=== PATIENT | female | born 1995 | race Caucasian/White ===

== ENCOUNTER 2017-07-19 14:36 | Emergency (ER) | payer OTHER ==
[2017-07-19 15:35] VITALS: BMI 28.0
[2017-07-19] MEDS ORDERED: Sodium Chloride 0.9% 500 ML IV STA (15:42)
--- NOTE | 2017-07-19 15:44 | ED PDOC ---
Arrival/HPI - General Historian: Patient - History of Present Illness Time/Duration: 24 hours Symptom Onset: Sudden Symptom Course: Worsening Quality: Stabbing Severity Level: 6 Activities at Onset: Light Context: Standing - General Chief Complaint: Groin Pain Time Seen by Provider: 07/19/17 14:44 - History of Present Illness Narrative History of Present Illness (Text): 07/19/17 16:14 This is a 22Y F with PMH hyperthyroidism and migraines came to the Emergency department for RLQ abdominal pain x 2 days. She reports it is a intermittent stabbing pain that radiates to her thigh and to the L side of her abdomen. The patient does complain of numbness in her R anterior thigh. She has never had this symptom before and does wear tight leggings on a daily basis. She denies chest pain, shortness of breath, n/v/d, fever or chills, dysuria or hematuria. Her LMP was 3 weeks ago. Her periods are regular and is not sexually active. (Charity Vitale) Past Medical History - Provider Review Nursing Documentation Reviewed: Yes - Travel History Have you recently traveled outside [place] w/in the past 3 mons?: Yes If Yes, travel location?: [place] - Infectious Disease Hx of Infectious Diseases: None - Neurological Hx Migraine: Yes - Endocrine/Metabolic Hx Hyperthyroidism: Yes - Psychiatric Hx Substance Use: No - Surgical History Hx Tonsillectomy: Yes - Anesthesia Hx Anesthesia: Yes Hx Anesthesia Reactions: No Hx Malignant Hyperthermia: No Family/Social History - Physician Review Nursing Documentation Reviewed: Yes Family/Social History: No Known Family HX Smoking Status: Never Smoked Hx Alcohol Use: No Hx Substance Use: No Allergies/Home Meds Allergies/Adverse Reactions: Allergies No Known Allergies Allergy (Unverified 11/15/16 19:28) Home Medications: Home Meds Medication Instructions Recorded Confirmed methIMAzole [Tapazole] 1 tab PO DAILY 07/19/17 07/19/17 Review of Systems - Physician Review All systems were reviewed & negative as marked: Yes - Review of Systems Constitutional: Normal. absent: Fevers Respiratory: Normal. absent: SOB Cardiovascular: Normal. absent: Chest Pain Gastrointestinal: Normal. absent: Abdominal Pain, Diarrhea, Nausea, Vomiting Genitourinary Female: Normal. absent: Dysuria, Frequency, Vaginal Bleeding, Vaginal Discharge Musculoskeletal: Other. absent: Back Pain, Joint Swelling Skin: Normal. absent: Rash Neurological: Normal. absent: Headache, Dizziness Physical Exam Vital Signs Reviewed: Yes Temperature: Afebrile Blood Pressure: Normal Pulse: Regular Respiratory Rate: Normal Appearance: Positive for: Well-Appearing, Non-Toxic, Comfortable Pain Distress: None Mental Status: Positive for: Alert and Oriented X 3 - Systems Exam Head: Present: Atraumatic, Normocephalic Pupils: Present: PERRL Extroacular Muscles: Present: EOMI Conjunctiva: Present: Normal Mouth: Present: Moist Mucous Membranes Neck: Present: Normal Range of Motion Respiratory/Chest: Present: Clear to Auscultation, Good Air Exchange. No: Respiratory Distress, Accessory Muscle Use Cardiovascular: Present: Regular Rate and Rhythm, Normal S1, S2. No: Murmurs Abdomen: Present: Tenderness, Normal Bowel Sounds, McBurney's Point Tender. No : Distention, Peritoneal Signs, Rebound, Guarding, Hernias Back: Present: Normal Inspection Upper Extremity: Present: Normal Inspection. No: Cyanosis, Edema Lower Extremity: Present: Normal Inspection. No: Edema Neurological: Present: GCS=15, CN II-XII Intact, Speech Normal Skin: Present: Warm, Dry, Normal Color. No: Rashes Psychiatric: Present: Alert, Oriented x 3, Normal Insight, Normal Concentration Medical Decision Making Re-evaluation Time: 16:50 ED Course and Treatment: 07/19/17 16:33 Impression: This is a 22Y F with PMH hyperthyroidism and migraines came to the Emergency department for RLQ abdominal pain x 2 days with associated numbness of her R anterior thigh. Differential Diagnosis included but are not limited to: appendicitis v. UTI v. meralgia paresthetica Plan: -- CBC, CMP, U/A -- Toradol -- NS -- Reassess and disposition Prior Visits: Notes and results from previous visits were reviewed. Progress Notes: 07/19/17 16:36 P atient continue to have numbness in thigh, but pain has improved. U/A positive but most likely contaminated, urine culture was sent. Had long discussion with patient about having a CT abd/pelvis to r/o appendicitis. Family was at bedside at this time. As per patient and family, they would prefer to have a more conservative approach to r/o appendicitis. The signs and symptoms of appendicitis were discussed. I have discussed the results and plan with the patient, who expresses understanding. Patient in agreement with plan to be discharged home. Patient is stable for discharge. Patient was instructed to follow up with physician or return if symptoms worsen or new concerning symptoms arise. (Charity Vitale) Seen and examined with resident. 22 y/o F p/w RLQ pain. RLQ tenderness on exam. (Micky Boswell) - Lab Interpretations Lab Results: 07/19/17 16:30 07/19/17 16:30 Lab Results 07/19/17 16:30: Sodium 139, Potassium 3.9, Chloride 103, Carbon Dioxide 24, Anion Gap 16, BUN 9, Creatinine 0.7, Est GFR ( Amer) > 60, Est GFR (Non- Af Amer) > 60, Random Glucose 88, Calcium 9.4, Total Bilirubin 0.3, AST 24, ALT 26, Alkaline Phosphatase 60, Total Protein 7.7, Albumin 4.6, Globulin 3.1, Albumin/Globulin Ratio 1.5 07/19/17 16:30: WBC 8.8, RBC 4.19, Hgb 11.7 L, Hct 35.7 L, MCV 85.2, MCH 27.9, MCHC 32.8, RDW 13.4, Plt Count 324, MPV 9.4 07/19/17 16:09: Urine Color Yellow, Urine Appearance Sl cloudy, Urine pH 6.0, Ur Specific [place] 1.020, Urine Protein Negative, Urine Glucose (UA) Negative, Urine Ketones Negative, Urine Blood Trace-intact H, Urine Nitrate Negative, Urine Bilirubin Negative, Urine Urobilinogen 0.2, Ur Leukocyte Esterase Large H , Urine RBC 0 - 2, Urine WBC 5 - 10, Ur Epithelial Cells Many, Urine Bacteria Many - Medication Orders Current Medication Orders: Discontinued Medications Sodium Chloride (Sodium Chloride 0.9%) 500 mls @ 999 mls/hr IV .Q31M STA Stop: 07/19/17 16:12 Last Admin: 07/19/17 16:26 Dose: 999 mls/hr Ketorolac Tromethamine (Toradol) 30 mg IVP STAT STA Stop: 07/19/17 15:43 Last Admin: 07/19/17 16:26 Dose: 30 mg Disposition/Present on Arrival - Present on Arrival Any Indicators Present on Arrival: No History of DVT/PE: No History of Uncontrolled Diabetes: No Urinary Catheter: No History of Decub. Ulcer: No History Surgical Site Infection Following: None - Disposition Have Diagnosis and Disposition been Completed?: Yes Disposition Time: 17:17 Patient Plan: Discharge - Disposition Diagnosis: Abdominal pain Disposition: HOME/ ROUTINE Condition: FAIR Print Language: URDU Additional Instructions: Ms. Goldman, thank you for letting us take care of you today. Your provider was Dr. Vitale. You were treated for abdominal pain. The emergency medical care you received today was directed at your acute symptoms. If you were prescribed any medication, please fill it and take as directed. It may take several days for your symptoms to resolve. Return to the Emergency Department if your symptoms worsen, do not improve, or if you have any other problems. Please contact your doctor or call one of the physicians/clinics you have been referred to that are listed on the Patient Visit Information form that is included in your discharge packet. Bring any paperwork you were given at discharge with you along with any medications you are taking to your follow up visit. Our treatment cannot replace ongoing medical care by a primary care provider (PCP) outside of the emergency department. Thank you for allowing the [facility] team to be part of your care today. For your urine culture: It will take several days for the results, if any change in treatment is needed we will contact you. Referrals: [facility] at [facility] [Outside] - Follow up with primary Forms: [employer] (Slovenian)
[2017-07-19 16:23] VITALS: BP 119/68; PULSE 82; RESP 18; TEMP 98.4; O2SAT 100
[2017-07-19 16:23] LABS: URINE BILIRUBIN NEGATIVE (NEGATIVE); URINE BLOOD TRACE-INTACT (NEGATIVE); URINE GLUCOSE (UA) NEGATIVE (NEGATIVE); URINE KETONE NEGATIVE (NEGATIVE); URINE LEUKOCYTE ESTERASE LARGE Leu/uL (NEGATIVE); URINE PROTEIN NEGATIVE mg/dL (<30 mg/dL); URINE UROBILINOGEN 0.2 E.U./dL (<1 E.U./dL)
[2017-07-19 16:24] LABS: URINE APPEARANCE SL CLOUDY (CLEAR); URINE COLOR YELLOW (YELLOW)
[2017-07-19 16:29] LABS: URINE RBC 0 - 2 /hpf (0-2)
[2017-07-19 16:30] LABS: URINE BACTERIA MANY (NEG); URINE EPITHELIAL CELLS MANY /hpf (0-5)
[2017-07-19 16:44] LABS: HEMATOCRIT 35.7 % (36.0-48.0); MEAN CELL VOLUME 85.2 fl (80.0-105.0); MEAN CORPUSCULAR HEMOGLOBIN 27.9 pg (25.0-35.0); MEAN CORPUSCULAR HGB CONC 32.8 g/dl (31.0-37.0); MEAN PLATELET VOLUME 9.4 fl (7.0-11.0); RED CELL DISTRIBUTION WIDTH 13.4 % (11.5-14.5); WHITE BLOOD COUNT 8.8 10^3/ul (4.5-11.0)
[2017-07-19 17:01] LABS: ALB/GLOB RATIO 1.5 (1.1-1.8); ALKALINE PHOSPHATASE 60 U/L (38-126); ALT/SGPT 26 U/L (7-56); AST/SGOT 24 U/L (14-36); BILIRUBIN,TOTAL 0.3 mg/dL (0.2-1.3); BLOOD UREA NITROGEN 9 mg/dL (7-21); CALCIUM 9.4 mg/dL (8.4-10.5); CARBON DIOXIDE 24 mmol/L (21-33); CHLORIDE 103 mmol/L (98-107); GFR AFRICAN-AMERICAN > 60; GLUCOSE,RANDOM 88 mg/dL (70-110); POTASSIUM 3.9 mmol/L (3.6-5.0); SODIUM 139 mmol/L (132-148); TOTAL PROTEIN 7.7 g/dL (5.8-8.3)
== END 2017-07-19 17:40 | disposition home or self-care (01) ==
LOC: ED 14:36
DX: R10.31 Right lower quadrant pain (principal); E05.90 Thyrotoxicosis, unspecified without thyrotoxic crisis or storm
CPT/HCPCS: 80053; 81001; 85027; 87086; 96374; 99285; J1885; J7040

== ENCOUNTER 2017-07-21 13:58 | Emergency (ER) | payer OTHER ==
[2017-07-21 13:59] VITALS: BMI 28.0
[2017-07-21 14:21] VITALS: TEMP 98.7
--- NOTE | 2017-07-21 14:54 | ED PDOC ---
Arrival/HPI - General Historian: Patient, Parent - History of Present Illness Time/Duration: < week Symptom Onset: Sudden Symptom Course: Worsening Quality: Unable to Describe - General Chief Complaint: Abdominal Pain Time Seen by Provider: 07/21/17 13:59 - History of Present Illness Narrative History of Present Illness (Text): 07/21/17 14:49 This is a 22 year old female with PMHx hyperthyroidism and migraines who presents for worsening abdominal pain. Pain is localized to the right lower quadrant and was originally described as a "needle" type pain which has since changed in character. Patient is unable to describe how the pain currently feels but states that it is worsened since prior ER visit. Patient states that her pain originally started on 07/18/17. Pain is constant and without radiation. Pain is not tied to meals, and patient states she still has her normal appetite. 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 Patient denies fevers , chills, chest pain, dyspnea, vomiting, constipation, diarrhea, dysuria. Patient's LMP was 3 weeks prior. (Juventino Smith) Past Medical History - Provider Review Nursing Documentation Reviewed: Yes - Travel History If Yes, travel location?: [place] - Infectious Disease Hx of Infectious Diseases: None - Neurological Hx Migraine: Yes - Endocrine/Metabolic Hx Hyperthyroidism: Yes - Psychiatric Hx Substance Use: No - Surgical History Hx Tonsillectomy: Yes - Anesthesia Hx Anesthesia: Yes Hx Anesthesia Reactions: No Hx Malignant Hyperthermia: No Family/Social History - Physician Review Nursing Documentation Reviewed: Yes Family/Social History: No Known Family HX Smoking Status: Never Smoked Hx Alcohol Use: No Hx Substance Use: No Allergies/Home Meds Allergies/Adverse Reactions: Allergies ibuprofen [From Advil] Adverse Reaction (Verified 07/21/17 14:21) SWELLING Home Medications: Home Meds Medication Instructions Recorded Confirmed methIMAzole [Tapazole] 1 tab PO DAILY 07/19/17 07/21/17 Review of Systems - Review of Systems Constitutional: Normal. absent: Fevers Eyes: Normal ENT: Normal Respiratory: Normal. absent: SOB Cardiovascular: Normal. absent: Chest Pain Gastrointestinal: Abdominal Pain (Right lower quadrant without radiation), Nausea. absent: Constipation, Diarrhea, Vomiting Genitourinary Female: Normal. absent: Dysuria Musculoskeletal: Normal Skin: Normal Neurological: Normal Endocrine: Normal Hemo/Lymphatic: Normal Psychiatric: Normal Physical Exam Vital Signs Reviewed: Yes Temperature: Afebrile Blood Pressure: Normal Pulse: Tachycardic Respiratory Rate: Normal Appearance: Positive for: Well-Appearing Pain Distress: Moderate Mental Status: Positive for: Alert and Oriented X 3 - Systems Exam Head: Present: Atraumatic, Normocephalic Pupils: Present: PERRL Extroacular Muscles: Present: EOMI Conjunctiva: Present: Normal Mouth: Present: Moist Mucous Membranes Neck: Present: Normal Range of Motion Respiratory/Chest: Present: Clear to Auscultation, Good Air Exchange. No: Accessory Muscle Use Cardiovascular: Present: Regular Rate and Rhythm, Normal S1, S2 Abdomen: Present: Tenderness (RLQ tenderness), Normal Bowel Sounds, McBurney's Point Tender. No: Distention, Rovsing's Sign Present Upper Extremity: Present: Normal Inspection, NORMAL PULSES. No: Edema Lower Extremity: Present: Normal Inspection, NORMAL PULSES. No: Edema, CALF TENDERNESS Neurological: Present: GCS=15, CN II-XII Intact Skin: Present: Warm, Dry, Normal Color Psychiatric: Present: Alert, Oriented x 3 Vital Signs Temp Pulse Resp BP Pulse Ox 07/21/17 17:00 89 18 124/79 98 07/21/17 14:16 98.7 F 99 H 19 126/83 99 Medical Decision Making ED Course and Treatment: 07/21/17 17:45 Patient seen and evaluated with clinical laboratory medical director. I evaluated patient and examined patient, and reviewed history and exam with mother and cousin with her permission. She reports 3 day history of right lower abdominal pain. On exam she has focal tenderness to RLQ but no rebound or guarding. Denies diarrhea. Denies loss of appetite. No ruq pain noted. No flank pain noted. No urinary symptoms reported. She has no fever, unremarkable WBC. Based on persistent RLQ pain, I discussed with patient and family indications for CT abdomen/pelvis and reviewed risks/benefits or imaging studies. They are agreeable to CT based on her persistent RLQ pain to evaluate for appendicitis. Patient is not sexually active, refuses pelvic exam or ultrasound as pain mild on re-evaluation. I reviewed with her and family CT reading and on exam she is comfortable, well hydrated. CT reveals constipation, although no appendicitis noted. I reviewed findings with patient and also recommended follow-up with cellophane worker given possible ovarian cysts. Urinalysis reviewed from prior visit, will treat for possible UTI. Risks/side effects of medications reviewed. Patient will be discharged with instructions for follow-up. Family updated. (Tanna,Brad) 07/21/17 15:00 CBC, CMP, Urine , UA, CT abdomen/pelvis w. IV contrast 07/21/17 16:49 CT abdomen/pelvis w. IV contrast FINDINGS: LOWER THORAX: Minor bibasilar atelectasis. No evidence of effusion or basilar pneumothorax. Small hiatal hernia with wall thickening of distal esophagus likely due to protrusion of gastric mucosa. LIVER: Liver is upper limits of normal in size measuring approximately 17.6 cm in CC dimension. No obvious hepatic mass or collection. Portal and splenic veins are opacified. GALLBLADDER AND BILE DUCTS: Gallbladder is incompletely distended which may account for slight thick-walled appearance. Clinical correlation recommended. PANCREAS: Unremarkable. No gross lesion or ductal dilatation. SPLEEN: Unremarkable. ADRENALS: No adrenal lesions. KIDNEYS AND URETERS: Kidneys demonstrate symmetric nephrograms. No evidence of nephrolithiasis or hydronephrosis. VASCULATURE: No evidence of abdominal aortic or iliac artery aneurysm BOWEL: Evaluation of the bowel is somewhat limited due to the lack of oral contrast material. Stomach is distended with food debris liquid and air. Visualized loops of small bowel exhibit relatively normal contour and caliber. No evidence acute mechanical small bowel obstruction. Large amount of stool seen throughout the colon consistent with constipation. APPENDIX: Normal-appearing appendix best seen on axial image number [id number] and coronal sequence number [id number]. No appendiceal inflammatory changes. PERITONEUM: Unremarkable. No free fluid. No free air. LYMPH NODES: There are a few small lymph nodes in the mesentery right lower quadrant of the abdomen; rule out mild mesenteric adenitis. . BLADDER: Urinary bladder is moderately distended REPRODUCTIVE: There appears to be a small left adnexal cyst measuring approximately 1 cm. Prominent endometrial canal likely secondary to principal secretary phase of the endometrial cycle. . The BONES: Osseous structures appear grossly unremarkable. OTHER FINDINGS: None. IMPRESSION: No evidence of acute appendicitis. Large amount of stool seen throughout the colon consistent with fecal retention/ constipation. Small left adnexal cyst measuring approximately 10 mm. Prominent endometrial canal which is likely due to principal secretary phase of the endometrial cycle. Follow- up pelvic ultrasound could be performed further evaluation of all these findings if necessary. 09/16/17 17:13 Upon re-evaluation of patient, she admitted to not having had a bowel movement for the past 4 days. (Juventino Smith) - Lab Interpretations Lab Results: 07/21/17 15:05 07/21/17 15:05 Lab Results 07/21/17 16:39: Urine Color Yellow, Urine Appearance Clear, Urine pH 7.0, Ur Specific [place] 1.010, Urine Protein Negative, Urine Glucose (UA) Negative, Urine Ketones Negative, Urine Blood Trace-intact H, Urine Nitrate Negative, Urine Bilirubin Negative, Urine Urobilinogen 0.2, Ur Leukocyte Esterase Moderate H, Urine RBC 1 - 3, Urine WBC 10 - 15, Ur Epithelial Cells 4 - 5, Amorphous Sediment Few, Urine Bacteria Many, Urine Other Uyeast 07/21/17 15:05: Sodium 141, Potassium 3.9, Chloride 106, Carbon Dioxide 28, Anion Gap 11, BUN 9, Creatinine 0.6, Est GFR ( Amer) > 60, Est GFR (Non- Af Amer) > 60, Random Glucose 92, Calcium 9.4, Total Bilirubin 0.3, AST 22, ALT 31, Alkaline Phosphatase 52, Total Protein 7.2, Albumin 4.2, Globulin 3.0, Albumin/Globulin Ratio 1.4 07/21/17 15:05: WBC 8.3, RBC 4.06, Hgb 11.4 L, Hct 34.8 L, MCV 85.7, MCH 28.1, MCHC 32.8, RDW 13.4, Plt Count 310, MPV 9.4, Gran % 58.5, Lymph % (Auto) 32.6, [place] % (Auto) 6.4 H, Eos % (Auto) 2.3, Baso % (Auto) 0.2, Gran # 4.86, Lymph # 2.7, [place] # 0.5, Eos # 0.2, Baso # 0.02 - RAD Interpretation Radiology Orders: 07/21/17 14:44 ABD & PELVIS IV CONTRAST ONLY [CT] Stat - Medication Orders Current Medication Orders: Discontinued Medications Iohexol (Omnipaque 350 100 Ml) Confirm Administered Dose 350 mg .ROUTE .STK-MED ONE Stop: 07/21/17 16:04 Disposition/Present on Arrival - Present on Arrival Any Indicators Present on Arrival: No History of DVT/PE: No History of Uncontrolled Diabetes: No Urinary Catheter: No History of Decub. Ulcer: No History Surgical Site Infection Following: None - Disposition Have Diagnosis and Disposition been Completed?: Yes Disposition Time: 17:45 - Disposition Diagnosis: Abdominal pain, UTI (urinary tract infection), Constipation Disposition: HOME/ ROUTINE Condition: GOOD Discharge Instructions (ExitCare): Constipation (ED), Urinary Tract Infection in Women (ED), Abdominal Pain (ED) Additional Instructions: Use medication for constipation as directed. For any fever, any bloody or dark stool, any chest pain or shortness of breath, any persistent or worsening abdominal pain, any back pain, any urinary symptoms, any change in character or intensity of pain, get rechecked immediately. Follow-up with your primary care doctor in 1-2 days. Follow-up with cellophane worker as directed. Follow-up with shrimp peeler as directed. Prescriptions: Docusate [Colace] 100 mg PO DAILY #7 cap Nitrofurantoin Macrocrystal [Macrodantin] 100 mg PO BID #10 capsule Referrals: [facility] at [facility] [place] [Outside] - Follow up with primary Elpidio Ha DO [Staff Provider] - Follow up with primary Stalin PAGAN,MD Pauly [Medical Doctor] - Follow up with primary Forms: [employer] (Maori)
[2017-07-21 15:26] LABS: BASO # 0.02 K/mm3 (0.0-2.0); BASO % 0.2 % (0.0-3.0); EOS # 0.2 (0.0-0.7); EOS % 2.3 % (1.5-5.0); GRAN # 4.86 (1.4-6.5); GRAN % 58.5 % (50.0-68.0); HEMATOCRIT 34.8 % (36.0-48.0); LYMPH # 2.7 (1.2-3.4); LYMPH % 32.6 % (22.0-35.0); MEAN CELL VOLUME 85.7 fl (80.0-105.0); MEAN CORPUSCULAR HEMOGLOBIN 28.1 pg (25.0-35.0); MEAN CORPUSCULAR HGB CONC 32.8 g/dl (31.0-37.0); MEAN PLATELET VOLUME 9.4 fl (7.0-11.0); MONO # 0.5 (0.1-0.6); MONO % 6.4 % (1.0-6.0); RED CELL DISTRIBUTION WIDTH 13.4 % (11.5-14.5); WHITE BLOOD COUNT 8.3 10^3/ul (4.5-11.0)
[2017-07-21 15:36] LABS: ALB/GLOB RATIO 1.4 (1.1-1.8); ALKALINE PHOSPHATASE 52 U/L (38-126); ALT/SGPT 31 U/L (7-56); AST/SGOT 22 U/L (14-36); BILIRUBIN,TOTAL 0.3 mg/dL (0.2-1.3); BLOOD UREA NITROGEN 9 mg/dL (7-21); CALCIUM 9.4 mg/dL (8.4-10.5); CARBON DIOXIDE 28 mmol/L (21-33); CHLORIDE 106 mmol/L (98-107); GFR AFRICAN-AMERICAN > 60; GLUCOSE,RANDOM 92 mg/dL (70-110); POTASSIUM 3.9 mmol/L (3.6-5.0); SODIUM 141 mmol/L (132-148); TOTAL PROTEIN 7.2 g/dL (5.8-8.3)
[2017-07-21] MEDS ORDERED: Iohexol 350 MG/100 ML VIAL ONE (16:03)
--- NOTE | 2017-07-21 16:46 | CT ---
PROCEDURE: CT Abdomen and Pelvis with contrast HISTORY: RLQ abdominal pain. R/o appendicitis COMPARISON: None. TECHNIQUE: Contrast dose: 91 cc Omnipaque 350 contrast material Radiation dose: Total exam DLP = 482.22 mGy-cm. This CT exam was performed using one or more of the following dose reduction techniques: Automated exposure control, adjustment of the mA and/or kV according to patient size, and/or use of iterative reconstruction technique. FINDINGS: LOWER THORAX: Minor bibasilar atelectasis. No evidence of effusion or basilar pneumothorax. Small hiatal hernia with wall thickening of distal esophagus likely due to protrusion of gastric mucosa. LIVER: Liver is upper limits of normal in size measuring approximately 17.6 cm in CC dimension. No obvious hepatic mass or collection. Portal and splenic veins are opacified. GALLBLADDER AND BILE DUCTS: Gallbladder is incompletely distended which may account for slight thick-walled appearance. Clinical correlation recommended. PANCREAS: Unremarkable. No gross lesion or ductal dilatation. SPLEEN: Unremarkable. ADRENALS: No adrenal lesions. KIDNEYS AND URETERS: Kidneys demonstrate symmetric nephrograms. No evidence of nephrolithiasis or hydronephrosis. VASCULATURE: No evidence of abdominal aortic or iliac artery aneurysm BOWEL: Evaluation of the bowel is somewhat limited due to the lack of oral contrast material. Stomach is distended with food debris liquid and air. Visualized loops of small bowel exhibit relatively normal contour and caliber. No evidence acute mechanical small bowel obstruction. Large amount of stool seen throughout the colon consistent with constipation. APPENDIX: Normal-appearing appendix best seen on axial image number [id number] and coronal sequence number [id number]. No appendiceal inflammatory changes. PERITONEUM: Unremarkable. No free fluid. No free air. LYMPH NODES: There are a few small lymph nodes in the mesentery right lower quadrant of the abdomen; rule out mild mesenteric adenitis. . BLADDER: Urinary bladder is moderately distended REPRODUCTIVE: There appears to be a small left adnexal cyst measuring approximately 1 cm. Prominent endometrial canal likely secondary to confidential secretary phase of the endometrial cycle. . The BONES: Osseous structures appear grossly unremarkable. OTHER FINDINGS: None. IMPRESSION: No evidence of acute appendicitis. Large amount of stool seen throughout the colon consistent with fecal retention/constipation. Small left adnexal cyst measuring approximately 10 mm. Prominent endometrial canal which is likely due to confidential secretary phase of the endometrial cycle. Follow-up pelvic ultrasound could be performed further evaluation of all these findings if necessary. Findings discussed with Dr. Cisse at approximately 4 40 p.m. with written down and read back verification.
[2017-07-21 16:53] LABS: URINE BILIRUBIN NEGATIVE (NEGATIVE); URINE BLOOD TRACE-INTACT (NEGATIVE); URINE GLUCOSE (UA) NEGATIVE (NEGATIVE); URINE KETONE NEGATIVE (NEGATIVE); URINE LEUKOCYTE ESTERASE MODERATE Leu/uL (NEGATIVE); URINE PROTEIN NEGATIVE mg/dL (<30 mg/dL); URINE UROBILINOGEN 0.2 E.U./dL (<1 E.U./dL)
[2017-07-21 16:57] LABS: URINE APPEARANCE CLEAR (CLEAR); URINE COLOR YELLOW (YELLOW)
[2017-07-21 16:59] LABS: URINE BACTERIA MANY (NEG)
[2017-07-21 17:00] LABS: URINE AMORPHOUS SEDIMENT FEW
[2017-07-21 17:01] VITALS: BP 124/79; PULSE 89; RESP 18; O2SAT 98
== END 2017-07-21 18:00 | disposition home or self-care (01) ==
LOC: ED 13:58
DX: N39.0 Urinary tract infection, site not specified (principal); R10.9 Unspecified abdominal pain; K59.00 Constipation, unspecified
CPT/HCPCS: 74177; 80053; 81001; 85025; 87086; 99283; Q9967

== ENCOUNTER 2017-09-24 13:39 | Emergency (ER) | payer OTHER ==
[2017-09-24 13:39] VITALS: BMI 28.0
[2017-09-24 13:52] VITALS: TEMP 98.6
--- NOTE | 2017-09-24 14:04 | ED PDOC ---
Arrival/HPI - General Chief Complaint: Flu-like Symptoms Time Seen by Provider: 09/24/17 14:01 Historian: Patient, Family - History of Present Illness Narrative History of Present Illness (Text): 09/24/17 13:55 Babita James is a 22 year old female, whose past medical history includes hyperthyroidism, who presents to the emergency department complaining of coughing and body aches. Patient reports she also has rhinorrhea and lack of appetite. Patient denies shortness of breath, fever, neck pain or other complaints. Symptom Course: Unchanged Past Medical History - Provider Review Nursing Documentation Reviewed: Yes - Infectious Disease Hx of Infectious Diseases: None - Cardiac Hx Cardiac Disorders: No - Pulmonary Hx Respiratory Disorders: No - Neurological Hx Neurological Disorder: Yes Hx Migraine: Yes - HEENT Hx HEENT Disorder: No - Renal Hx Renal Disorder: No - Endocrine/Metabolic Hx Endocrine Disorders: Yes Hx Hyperthyroidism: Yes - Hematological/Oncological Hx Blood Disorders: No - Integumentary Hx Dermatological Disorder: No - Musculoskeletal/Rheumatological Hx Musculoskeletal Disorders: No - Gastrointestinal Hx Gastrointestinal Disorders: No - Genitourinary/Gynecological Hx Genitourinary Disorders: No - Psychiatric Hx Psychophysiologic Disorder: No Hx Substance Use: No - Surgical History Hx Tonsillectomy: Yes - Anesthesia Hx Anesthesia: Yes Hx Anesthesia Reactions: No Hx Malignant Hyperthermia: No Family/Social History - Physician Review Nursing Documentation Reviewed: Yes Family/Social History: Unknown Family HX Smoking Status: Never Smoked Hx Alcohol Use: No Hx Substance Use: No Allergies/Home Meds Allergies/Adverse Reactions: Allergies ibuprofen [From Advil] Adverse Reaction (Mild, Verified 09/24/17 13:48) SWELLING Home Medications: Home Meds Medication Instructions Recorded Confirmed methIMAzole [Tapazole] 3 tab PO DAILY 07/19/17 09/24/17 Review of Systems - Physician Review All systems were reviewed & negative as marked: Yes - Review of Systems Constitutional: absent: Fevers ENT: Rhinorrhea Respiratory: Cough. absent: SOB Gastrointestinal: Appetite Changes Musculoskeletal: Other (generalized body aches) Physical Exam - Physical Exam Narrative Physical Exam (Text): 09/24/17 Constitutional: No acute distress. Head: Normocephalic. Atraumatic. Eyes: PERRL. ENT: Moist mucous membranes. (-) no erythema or exudate Neck: Supple. Cardiovascular: Regular rate. Chest: No tenderness. Respiratory: Clear to auscultation bilaterally. GI: Soft. Nontender. Nondistended. Back: No CVA tenderness. Musculoskeletal: No tenderness or swelling of extremities. Skin: No rash. Neurologic: Alert, no focal deficit. (-) kernig and brudzinski sign Vital Signs Reviewed: Yes Vital Signs Temp Pulse Resp BP Pulse Ox 09/24/17 13:52 98.6 F 74 18 112/76 97 Medical Decision Making ED Course and Treatment: Offered patient IV hydration, labs, CXR, flu swab, etc, but patient declined. She requested medication for pain and nausea. Will prescribe Zofran, advised acetaminophen, and I informed patient she may return at any time for persistent or worsening symptoms. - Scribe Statement The provider has reviewed the documentation as recorded by the René Chou Provider Scribe Attestation: All medical record entries made by the Scribe were at my direction and personally dictated by me. I have reviewed the chart and agree that the record accurately reflects my personal performance of the history, physical exam, medical decision making, and the department course for this patient. I have also personally directed, reviewed, and agree with the discharge instructions and disposition. Disposition/Present on Arrival - Present on Arrival Any Indicators Present on Arrival: No History of DVT/PE: No History of Uncontrolled Diabetes: No Urinary Catheter: No History of Decub. Ulcer: No History Surgical Site Infection Following: None - Disposition Have Diagnosis and Disposition been Completed?: Yes Diagnosis: URI (upper respiratory infection) Disposition: HOME/ ROUTINE Disposition Time: 14:05 Patient Plan: Discharge Patient Problems: Current Active Problems Problem Status Onset URI (upper respiratory infection) Acute Condition: STABLE Discharge Instructions (ExitCare): Viral Syndrome (ED) Prescriptions: Ondansetron ODT [Zofran ODT] 4 mg PO Q8 #12 odt Forms: [employer] (Hebrew)
[2017-09-24 16:53] VITALS: BP 116/87; PULSE 80; RESP 16; O2SAT 100
== END 2017-09-24 14:08 | disposition home or self-care (01) ==
LOC: ED 13:39
DX: J06.9 Acute upper respiratory infection, unspecified (principal)

== ENCOUNTER 2018-09-14 11:24 | Emergency (ER) | payer OTHER ==
[2018-09-14 11:38] VITALS: BMI 26.5
[2018-09-14] MEDS ORDERED: DiphenhydrAMINE 50 mg/ml Inj IVP STA (11:38)
[2018-09-14 11:41] VITALS: RESP 18
--- NOTE | 2018-09-14 12:52 | ED PDOC ---
Arrival/HPI - General Chief Complaint: Allergic Reaction Historian: Patient, Parent - History of Present Illness Narrative History of Present Illness (Text): 09/14/18 13:14 23yo female with pmhx of hypothyroid who present with complaint of generalized pruritic rash s/p eating breakfast this morning. The mother by the bedside states she was the one that prepared the falal with egg this morning. states she have eaten this food in the past without any reaction. Notes that the rash started minutes after eating. She otherwise denies any inciting factors, SOB, chest pain, tongue swelling , drooling. Past Medical History - Provider Review Nursing Documentation Reviewed: Yes - Infectious Disease Hx of Infectious Diseases: None - Cardiac Hx Cardiac Disorders: No - Pulmonary Hx Respiratory Disorders: No - Neurological Hx Neurological Disorder: Yes Hx Migraine: Yes - HEENT Hx HEENT Disorder: No - Renal Hx Renal Disorder: No - Endocrine/Metabolic Hx Endocrine Disorders: Yes Hx Hyperthyroidism: Yes - Hematological/Oncological Hx Blood Disorders: No - Integumentary Hx Dermatological Disorder: No - Musculoskeletal/Rheumatological Hx Musculoskeletal Disorders: No - Gastrointestinal Hx Gastrointestinal Disorders: No - Genitourinary/Gynecological Hx Genitourinary Disorders: No - Psychiatric Hx Psychophysiologic Disorder: No Hx Substance Use: No - Surgical History Hx Tonsillectomy: Yes - Anesthesia Hx Anesthesia: Yes Hx Anesthesia Reactions: No Hx Malignant Hyperthermia: No Family/Social History - Physician Review Nursing Documentation Reviewed: Yes Family/Social History: Unknown Family HX Smoking Status: Never Smoked Hx Alcohol Use: No Hx Substance Use: No Allergies/Home Meds Allergies/Adverse Reactions: Allergies ibuprofen [From Advil] Adverse Reaction (Mild, Verified 09/14/18 11:41) SWELLING Home Medications: Home Meds Medication Instructions Recorded Confirmed methIMAzole [Tapazole] 3 tab PO DAILY 07/19/17 09/14/18 Review of Systems - Physician Review All systems were reviewed & negative as marked: Yes - Review of Systems Constitutional: Normal Eyes: Normal ENT: Normal Respiratory: Normal Cardiovascular: Normal Gastrointestinal: Normal Genitourinary Female: Normal Musculoskeletal: Normal Skin: Rash, Pruritis Neurological: Normal Endocrine: Normal Hemo/Lymphatic: Normal Psychiatric: Normal Physical Exam Vital Signs Reviewed: Yes Vital Signs Temp Pulse Resp BP Pulse Ox 09/14/18 11:39 98.7 F 88 18 108/79 99 Temperature: Afebrile Blood Pressure: Normal Pulse: Regular Respiratory Rate: Normal Appearance: Positive for: Well-Appearing, Non-Toxic, Comfortable Pain Distress: None Mental Status: Positive for: Alert and Oriented X 3 - Systems Exam Head: Present: Atraumatic, Normocephalic Pupils: Present: PERRL Extroacular Muscles: Present: EOMI Conjunctiva: Present: Normal Mouth: Present: Moist Mucous Membranes. No: Drooling Pharnyx: No: Strider Neck: Present: Normal Range of Motion Respiratory/Chest: Present: Clear to Auscultation, Good Air Exchange. No: Respiratory Distress, Accessory Muscle Use Cardiovascular: Present: Regular Rate and Rhythm, Normal S1, S2. No: Murmurs Abdomen: No: Tenderness, Distention, Peritoneal Signs Back: Present: Normal Inspection Upper Extremity: Present: Normal Inspection. No: Cyanosis, Edema Lower Extremity: Present: Normal Inspection. No: Edema Neurological: Present: GCS=15, CN II-XII Intact, Speech Normal Skin: Present: Warm, Dry, Rashes (hives noted on back, trunk, neck), Normal Color Psychiatric: Present: Alert, Oriented x 3, Normal Insight, Normal Concentration Medical Decision Making - Medication Orders Current Medication Orders: Discontinued Medications Diphenhydramine HCl (Benadryl) 25 mg IVP STAT STA Stop: 09/14/18 11:39 Last Admin: 09/14/18 12:00 Dose: 25 mg IVP Administration Document 09/14/18 12:00 [place] (Rec: 09/14/18 12:07 [place] [id number] Charges for Administration # of IVP Administrations 1 Famotidine (Pepcid) 20 mg IVP STAT STA Stop: 09/14/18 11:39 Last Admin: 09/14/18 12:00 Dose: 20 mg IVP Administration Document 09/14/18 12:00 LA (Rec: 09/14/18 12:07 LA [id number]) Charges for Administration # of IVP Administrations 1 Methylprednisolone (Solu-Medrol) 125 mg IVP STAT STA Stop: 09/14/18 11:39 Last Admin: 09/14/18 12:00 Dose: 125 mg IVP Administration Document 09/14/18 12:00 [place] (Rec: 09/14/18 12:07 [place] [id number]) Charges for Administration # of IVP Administrations 1 Disposition/Present on Arrival - Present on Arrival Any Indicators Present on Arrival: No History of DVT/PE: No History of Uncontrolled Diabetes: No Urinary Catheter: No History of Decub. 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
[2018-09-14 13:11] VITALS: BP 111/75; PULSE 68; TEMP 97.8; O2SAT 95
== END 2018-09-14 13:54 | disposition home or self-care (01) ==
LOC: ED 11:24
DX: T78.49XA Other allergy, initial encounter (principal); X58.XXXA Exposure to other specified factors, initial encounter
CPT/HCPCS: 96374; 96375; 99285; J1200; J2930

== ENCOUNTER 2018-12-18 20:30 | Emergency (ER) | payer OTHER ==
[2018-12-18 20:36] VITALS: BMI 29.2
[2018-12-18 20:40] VITALS: RESP 18; TEMP 97.3
[2018-12-18 21:58] LABS: BASO # 0.03 K/mm3 (0.0-2.0); BASO % 0.3 % (0.0-3.0); EOS # 0.1 (0.0-0.7); HEMOGLOBIN 11.4 g/dL (12.0-16.0); LYMPH # 3.7 (1.2-3.4); LYMPH % 33.2 % (22.0-35.0); MEAN CELL VOLUME 84.2 fl (80.0-105.0); MEAN PLATELET VOLUME 10.2 fl (7.0-11.0); MONO # 0.8 (0.1-0.6); MONO % 7.6 % (1.0-6.0); RBC 4.23 10^6/uL (3.5-6.1); RED CELL DISTRIBUTION WIDTH 13.1 % (11.5-14.5)
--- NOTE | 2018-12-18 22:00 | ED PDOC ---
Arrival/HPI - General Chief Complaint: Syncope Time Seen by Provider: 12/18/18 20:57 Historian: Patient - History of Present Illness Narrative History of Present Illness (Text): 12/18/18 21:57 Babita Goldman is a 23 year old female who presents to the emergency department accompanied by family status post syncopal episode. Patient states she felt dizzy this evening, stood up, and subsequently had a witnessed syncopal episode. On arrival, patient is awake, alert, and oriented x 3. The patient denies any fever, chills, chest pain, shortness of breath, abdominal pain, nausea, vomiting, diarrhea, urinary symptoms, back pain, neck pain, headache, dizziness, or any other complaints. Symptom Onset: Gradual Symptom Course: Unchanged Activities at Onset: Light Context: Home Past Medical History - Provider Review Nursing Documentation Reviewed: Yes - Infectious Disease Hx of Infectious Diseases: None - Cardiac Hx Cardiac Disorders: No - Pulmonary Hx Respiratory Disorders: No - Neurological Hx Neurological Disorder: Yes Hx Migraine: Yes - HEENT Hx HEENT Disorder: No - Renal Hx Renal Disorder: No - Endocrine/Metabolic Hx Endocrine Disorders: Yes Hx Hyperthyroidism: Yes - Hematological/Oncological Hx Blood Disorders: No - Integumentary Hx Dermatological Disorder: No - Musculoskeletal/Rheumatological Hx Musculoskeletal Disorders: No - Gastrointestinal Hx Gastrointestinal Disorders: No - Genitourinary/Gynecological Hx Genitourinary Disorders: No - Psychiatric Hx Psychophysiologic Disorder: No Hx Substance Use: No - Surgical History Hx Tonsillectomy: Yes - Anesthesia Hx Anesthesia: Yes Hx Anesthesia Reactions: No Hx Malignant Hyperthermia: No Family/Social History - Physician Review Nursing Documentation Reviewed: Yes Family/Social History: Unknown Family HX Smoking Status: Never Smoked Hx Alcohol Use: No Hx Substance Use: No Allergies/Home Meds Allergies/Adverse Reactions: Allergies ibuprofen [From Advil] Adverse Reaction (Mild, Verified 09/14/18 11:41) SWELLING Home Medications: Home Meds Medication Instructions Recorded Confirmed methIMAzole [Tapazole] 2 tab PO DAILY 07/19/17 12/18/18 Review of Systems - Physician Review All systems were reviewed & negative as marked: Yes - Review of Systems Constitutional: Normal. absent: Fevers Eyes: Normal ENT: Normal Respiratory: Normal. absent: SOB, Cough Cardiovascular: Syncope Gastrointestinal: Normal. absent: Abdominal Pain, Diarrhea, Nausea, Vomiting Genitourinary Female: Normal. absent: Dysuria, Frequency, Hematuria, Urine Output Changes Musculoskeletal: Normal. absent: Back Pain, Neck Pain Skin: Normal. absent: Rash Neurological: Dizziness Endocrine: Normal Hemo/Lymphatic: Normal Psychiatric: Normal Physical Exam Vital Signs Reviewed: Yes Vital Signs Temp Pulse Resp BP Pulse Ox 12/18/18 20:39 97.3 F L 105 H 18 129/90 99 Temperature: Afebrile Blood Pressure: Normal Pulse: Regular Respiratory Rate: Normal Appearance: Positive for: Well-Appearing, Non-Toxic, Comfortable Pain Distress: None Mental Status: Positive for: Alert and Oriented X 3 Finger Stick Blood Glucose: 124 - Systems Exam Head: Present: Atraumatic, Normocephalic Pupils: Present: PERRL Extroacular Muscles: Present: EOMI Conjunctiva: Present: Normal Mouth: Present: Moist Mucous Membranes Neck: Present: Normal Range of Motion Respiratory/Chest: Present: Clear to Auscultation, Good Air Exchange. No: Respiratory Distress, Accessory Muscle Use Cardiovascular: Present: Regular Rate and Rhythm, Normal S1, S2. No: Murmurs Abdomen: No: Tenderness, Distention, Peritoneal Signs Back: Present: Normal Inspection Upper Extremity: Present: Normal Inspection. No: Cyanosis, Edema Lower Extremity: Present: Normal Inspection. No: Edema Neurological: Present: GCS=15, CN II-XII Intact, Speech Normal Skin: Present: Warm, Dry, Normal Color. No: Rashes Psychiatric: Present: Alert, Oriented x 3, Normal Insight, Normal Concentration Medical Decision Making ED Course and Treatment: 12/18/18 21:57 Impression: 23 year old female complaining of dizziness and loss of consciousness. Plan: -- EKG -- Labs, troponin, T4 -- Urinalysis, urine drug screen -- Reassess and disposition Prior Visits: Notes and results from previous visits were reviewed. Progress Notes: Reviewed EKG, NSR at 81 bpm. Sinus arrhythmia. No acute changes. 12/18/18 23:24 CT Head: BRAIN No acute intraparenchymal hemorrhage. No mass lesion. No CT evidence for acute territorial infarct. No midline shift or extra-axial collections. VENTRICLES: No hydrocephalus. ORBITS: The orbits are unremarkable. SINUSES AND MASTOIDS: The paranasal sinuses and mastoid air cells are clear. BONES: No fracture. SOFT TISSUES: Unremarkable. IMPRESSION: No acute intracranial abnormality. Electronically signed on Dec 18, 2018 11:23:49 PM EST by: Elpidio Linares M.D., AXEL Certified By [facility] Fellowship Trained MRI and CT Specialist 12/19/18 00:25 On reevaluation the patient feels better and is in no acute distress. I have discussed the results and plan with the patient, who expresses understanding. Patient given the opportunity to ask question, all questions were answered and there is agreement with the plan to discharge the patient home. Patient is sta ble for discharge. Patient was instructed to follow up with physician/clinic in 1-2 days or return if symptoms persist/worsen or new concerning symptoms arise. 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 I have reviewed the chart and agree that the record accurately reflects my personal performance of the history, physical exam, medical decision making, and the department course for this patient. I have also personally directed, reviewed, and agree with the discharge instructions and disposition. Disposition/Present on Arrival - Present on Arrival History of DVT/PE: No History of Uncontrolled Diabetes: No Urinary Catheter: No History of Decub. Ulcer: No History Surgical Site Infection Following: None - Disposition Diagnosis: Vertigo Disposition: HOME/ ROUTINE Disposition Time: 00:25 Discharge Instructions (ExitCare): Vertigo (a Type of Dizziness) Prescriptions: Meclizine [Antivert] 12.5 mg PO TID #12 tab Referrals: Cherise Collado MD [Primary Care Provider] - Follow up with primary Forms: [employer] (Tuvaluan)
[2018-12-18 22:10] LABS: ALB/GLOB RATIO 1.4 (1.1-1.8); ALBUMIN 4.6 g/dL (3.0-4.8); ALT/SGPT 11 U/L (7-56); AST/SGOT 24 U/L (14-36); BLOOD UREA NITROGEN 13 mg/dL (7-21); CALCIUM 9.9 mg/dL (8.4-10.5); GFR NON-AFRICAN AMERICAN > 60
[2018-12-18 22:21] LABS: TROPONIN I < 0.01 ng/mL
[2018-12-18 22:32] LABS: BARBITURATES, UR NEGATIVE (NEGATIVE); BENZODIAZEPINES, UR NEGATIVE (NEGATIVE); OPIATES, UR NEGATIVE (NEGATIVE); PHENCYCLIDINE, UR NEGATIVE (NEGATIVE)
[2018-12-18 23:15] LABS: URINE BILIRUBIN NEGATIVE (NEGATIVE); URINE BLOOD SMALL (NEGATIVE); URINE GLUCOSE (UA) NEGATIVE (NEGATIVE); URINE LEUKOCYTE ESTERASE TRACE Leu/uL (NEGATIVE); URINE PROTEIN NEGATIVE mg/dL (<30 mg/dL); URINE UROBILINOGEN 0.2 E.U./dL (<1 E.U./dL)
[2018-12-18 23:21] LABS: URINE APPEARANCE CLEAR (CLEAR); URINE COLOR YELLOW (YELLOW)
[2018-12-18 23:27] LABS: URINE BACTERIA OCC /hpf; URINE RBC 0 - 2 /hpf (0-2)
[2018-12-19 00:26] VITALS: BP 115/85; PULSE 88; O2SAT 100
--- NOTE | 2018-12-19 08:11 | CT ---
Date of service: 12/18/2018 PROCEDURE: CT HEAD WITHOUT CONTRAST. HISTORY: dizzy COMPARISON: 11/15/2016 TECHNIQUE: Axial computed tomography images were obtained through the head/brain without intravenous contrast. Radiation dose: Total exam DLP = 785.02 mGy-cm. This CT exam was performed using one or more of the following dose reduction techniques: Automated exposure control, adjustment of the mA and/or kV according to patient size, and/or use of iterative reconstruction technique. FINDINGS: HEMORRHAGE: No intracranial hemorrhage. BRAIN: No mass effect or edema. No atrophy or chronic microvascular ischemic changes. VENTRICLES: Unremarkable. No hydrocephalus. CALVARIUM: Unremarkable. PARANASAL SINUSES: Unremarkable as visualized. No significant inflammatory changes. MASTOID AIR CELLS: Unremarkable as visualized. No inflammatory changes. OTHER FINDINGS: The report concurs with the preliminary [facility] report IMPRESSION: Normal CT of the Head.
--- NOTE | 2018-12-19 15:23 | CARD ---
APPROVED REPORT Date of service: 12/18/2018 EKG Measurement Heart [id number] <Conclusion> Normal sinus rhythm with sinus arrhythmia Normal ECG
== END 2018-12-19 00:26 | disposition home or self-care (01) ==
LOC: ED 20:30
DX: R42 Dizziness and giddiness (principal); E05.90 Thyrotoxicosis, unspecified without thyrotoxic crisis or storm

== ENCOUNTER 2019-01-02 13:56 | Outpatient (CLI) | payer OTHER | END 2019-01-02 13:57 | disposition home or self-care (01) | LOC: RAD 13:56 ==